=== PATIENT | male | born 1945 | race Caucasian/White ===

== ENCOUNTER → 2016-07-11 | Outpatient (CLI) | payer MEDICARE, OTHER ==
[~2016-07-11] MED LIST: ASPI325T80 PO; FOLI-17 PO; REGADENOSON 0.4 MG/5 ML SYRINGE ONE
== END | disposition home or self-care (01) ==
LOC: CFH 07:31
PROVIDERS: ATTEND Internal Medicine Cardiovascular Disease
DX: I10 Essential (primary) hypertension (principal); R06.00 Dyspnea, unspecified
CPT/HCPCS: 78452; 93017; A9502; J2785

== ENCOUNTER 2016-07-23 10:19 | Day surgery (SDC) | payer MEDICARE, OTHER ==
[2016-07-20 12:51] VITALS: BP 148/81
[2016-07-20 13:14] LABS: HEMOGLOBIN 15.4 g/dL (13.7-18.0)
[2016-07-20 13:23] LABS: BLOOD UREA NITROGEN 20 mg/dL (7-18)
[~2016-07-23] VITALS: Ht 175.3 cm; Wt 77.3 kg
[~2016-07-23 10:19] MED LIST changes: -REGADENOSON 0.4 MG/5 ML SYRINGE ONE
[2016-07-23] MEDS ORDERED: MIDAZOLAM 1 MG/ML, 5ML ONE ×2 (10:56→11:20)
[2016-07-23] MEDS ORDERED: VERAPAMIL 2.5 MG/ML, 2ML ONE ×2 (10:57→11:21)
[2016-07-23] MEDS ORDERED: HEPARIN 1,000 UNITS/ML, 10ML ONE ×2 (10:57→11:21)
[2016-07-23] MEDS ORDERED: BIVALIRUDIN 250 MG ONE ×2 (10:57→11:21)
[2016-07-23] MEDS ORDERED: LIDOCAINE 2%, 20ML ONE ×2 (10:57→11:21)
[2016-07-23] MEDS ORDERED: NITROGLYCERIN 5 MG/ML, 10ML ONE ×2 (10:57→11:20)
[2016-07-23] MEDS ORDERED: FENTANYL PF 100 MCG/2ML ONE ×2 (10:57→11:20)
[2016-07-23] MEDS ORDERED: TICAGRELOR 90 MG TABLET ONE ×2 (10:57→11:21)
[2016-07-23] MEDS ORDERED: ACETAMINOPHEN 325 MG TABLET PO PRN (11:00)
[2016-07-23] MEDS ORDERED: ZOLPIDEM 5MG TABLET PO PRN (11:00)
[2016-07-23] MEDS ORDERED: ONDANSETRON 2MG/ML, 2ML IVPush PRN (11:00)
[2016-07-23] MEDS ORDERED: ASPIRIN 325 MG TABLET EC PO ONE (11:00)
[2016-07-23] MEDS ORDERED: BISACODYL 5 MG EC TABLET PO PRN (11:00)
[2016-07-23] MEDS ORDERED: SODIUM CHLORIDE 0.9% 1,000 ML IV SCH (11:00)
[2016-07-23] MEDS ORDERED: BISACODYL 10 MG SUPP PR PRN (11:00)
[2016-07-23] MEDS ORDERED: ASPIRIN 325 MG TABLET EC ONE (11:13)
[2016-07-23] MEDS ORDERED: CHOL10002 PO (11:26)
[2016-07-23] MEDS ORDERED: MV-M1TAB35 PO (11:26)
[2016-07-23] MEDS ORDERED: BUDE3CAP2 PO (11:26)
[2016-07-23] MEDS ORDERED: MELA1TAB5 PO (11:26)
[2016-07-23] MEDS ORDERED: IRBE150T25 PO (11:26)
== END 2016-07-23 14:30 | disposition home or self-care (01) ==
LOC: CACL 10:19
PROVIDERS: ATTEND Internal Medicine Cardiovascular Disease
DX: I25.10 Atherosclerotic heart disease of native coronary artery without angina pectoris (principal); I10 Essential (primary) hypertension; Z79.01 Long term (current) use of anticoagulants
CPT/HCPCS: 36415; 71020; 80048; 85025; 85610; 85730; 93458; C1894; J1644; J2250; J3490; Q9967; J0583; J3010

== ENCOUNTER 2019-05-21 07:48 | Outpatient (CLI) | payer MEDICARE, OTHER ==
[~2019-05-21 07:48] MED LIST changes: +BUDE3CAP2 PO; +CHOL10002 PO; +IRBE150T9 PO; +MELA1TAB5 PO; +MV-M1TAB35 PO
[2019-05-21 08:44] LABS: BASOPHILS # (AUTO) 0.03 x10^3/uL (0-0.1); BASOPHILS % (AUTO) 1 % (0-1); EOSINOPHILS # (AUTO) 0.14 x10^3/uL (0-0.4); EOSINOPHILS % (AUTO) 3 % (1-7); LYMPHOCYTES # (AUTO) 1.51 x10^3/uL (1-3.4); LYMPHOCYTES % (AUTO) 31 % (22-44); MD NO; MEAN CORPUSCULAR HEMOGLOBIN 31.2 pg (27.5-34.5); MEAN CORPUSCULAR HGB CONC 33.6 g/dL (33.2-36.2); MEAN CORPUSCULAR VOLUME 93.1 fL (81-97); MEAN PLATELET VOLUME 7.5 fL (7.4-10.4); MONOCYTES # (AUTO) 0.38 x10^3/uL (0.2-0.8); MONOCYTES % (AUTO) 8 % (2-9); NEUTROPHILS # (AUTO) 2.77 x10^3/uL (1.8-6.8); NEUTROPHILS % (AUTO) 57 % (42-75); PLATELET COUNT 183 x10^3/uL (130-400); RED BLOOD COUNT 4.96 x10^6/uL (4.38-5.82); RED CELL DISTRIBUTION WIDTH 14.9 % (9.4-14.8)
[2019-05-21 08:47] LABS: MICROSCOPIC NOT IND
[2019-05-21 08:53] LABS: INTERNATIONAL NORMALIZED RATIO 0.95 (0.93-1.1); PROTHROMBIN TIME 10.1 Seconds (9.6-11.5)
[2019-05-21 08:54] LABS: ALANINE AMINOTRANSFERASE 44 U/L (12-78); ALBUMIN 3.4 g/dL (3.4-5.0); ANION GAP 6 mmol/L (5-15); CALCIUM 8.9 mg/dL (8.5-10.1); CHLORIDE 107 mmol/L (98-107); CREATININE 1.14 mg/dL (0.7-1.3)
[2019-05-21 08:56] LABS: ALKALINE PHOSPHATASE 79 U/L (45-117); BILIRUBIN,TOTAL 0.8 mg/dL (0.2-1.0); TOTAL PROTEIN 7.1 g/dL (6.4-8.2)
[2019-05-21 09:04] LABS: CULTURE INDICATED? NO
== END 2019-05-21 23:59 | disposition home or self-care (01) ==
LOC: STAR 07:48
PROVIDERS: ATTEND Neurological Surgery
DX: Z01.818 Encounter for other preprocedural examination (principal); M50.323 Other cervical disc degeneration at C6-C7 level; M47.812 Spondylosis without myelopathy or radiculopathy, cervical region
CPT/HCPCS: 36415; 72050; 80053; 81003; 85025; 85610; 85730; 93005

== ENCOUNTER → 2019-07-20 | Outpatient (CLI) | payer MEDICARE, OTHER ==
[~2019-07-20] MED LIST changes: +HYDR-36 PO; +TIZA2CAP2 PO
== END | disposition home or self-care (01) ==
LOC: RAD 11:49
PROVIDERS: ATTEND Nurse Practitioner Family
DX: M43.22 Fusion of spine, cervical region (principal)
CPT/HCPCS: 72040

== ENCOUNTER 2019-09-10 11:32 | Outpatient (CLI) | payer MEDICARE, OTHER ==
[~2019-09-10 11:32] MED LIST changes: +HYDR-3246 PO; -HYDR-36 PO
== END 2019-09-10 23:59 | disposition home or self-care (01) ==
LOC: RAD 11:32
PROVIDERS: ATTEND Internal Medicine Cardiovascular Disease
DX: I82.412 Acute embolism and thrombosis of left femoral vein (principal)

== ENCOUNTER 2020-03-25 10:49 | Emergency (ER) | payer MEDICARE, OTHER ==
[~2020-03-25] VITALS: Ht 172.7 cm; Wt 77.6 kg
[2020-03-25 10:56] VITALS: BP 150/84
== END 2020-03-25 12:59 | disposition home or self-care (01) ==
LOC: ED 12:08
DX: L20.9 Atopic dermatitis, unspecified (principal); R06.02 Shortness of breath
CPT/HCPCS: 71045; 99283